=== PATIENT | female | born 1985 | race Caucasian/White ===

== ENCOUNTER → 2016-08-22 | Outpatient (CLI) | payer BC, OTHER ==
[2016-08-22 12:27] LABS: URINE APPEARANCE CLEAR (CLEAR); URINE BILIRUBIN NEG (NEG); URINE COLOR YELLOW; URINE EPITHELIAL CELL AUTO >30 /lpf (0-5); URINE NITRITE NEG (NEG); URINE SPECIFIC GRAVITY 1.014 (1.000-1.030); UROBILINOGEN NEG (NEG)
[2016-08-22 12:36] LABS: MANUAL MICROSCOPIC REQUIRED? NO; REVIEW REQ? NO
== END | disposition home or self-care (01) ==
LOC: C.LABSPEC 11:32 → MERGE 11:32
PROVIDERS: ATTEND Obstetrics & Gynecology
DX: Z34.90 Encounter for supervision of normal pregnancy, unspecified, unspecified trimester (principal)

== ENCOUNTER → 2016-08-29 | Outpatient (CLI) | payer OTHER ==
[2016-08-29 09:59] LABS: BASO % 0.5 %; BASO ABS # 0.03 K/uL (0-0.2); COMPLETE YES; EOS % 0.7 %; HEMATOCRIT 37.2 % (37-47); IG% 0.2 %; LYMPH % 26.1 %; LYMPH ABS # 1.47 K/uL (1.2-3.4); MEAN CELL VOLUME 88.6 fL (80-100); MEAN CORPUSCULAR HEMOGLOBIN 30.7 pg (25-34); MEAN CORPUSCULAR HGB CONC 34.7 g/dl (32-36); MONO % 4.8 %; NEUT % 67.7 %; PLATELET COUNT 267 K/uL (130-400); WHITE BLOOD COUNT 5.63 K/uL (4.8-10.8)
[2016-08-31 08:00] LABS: CHLAMYDIA TRACH RNA*** NOT DETECTED (NOT DETECTED); GC (NEIS GONORRHOEAE)RNA** NOT DETECTED (NOT DETECTED)
== END | disposition home or self-care (01) ==
LOC: MERGE 09:04 → C.LAB1850 09:04
PROVIDERS: ATTEND Obstetrics & Gynecology
DX: Z34.90 Encounter for supervision of normal pregnancy, unspecified, unspecified trimester (principal)

== ENCOUNTER 2017-03-08 15:47 | Outpatient (CLI) | payer OTHER ==
[2017-04-03] MEDS ORDERED: PRENTAB26 PO (19:54)
== END 2017-04-03 20:47 | disposition home or self-care (01) ==
LOC: C.LABSPEC 15:47
PROVIDERS: ATTEND Obstetrics & Gynecology
DX: Z34.83 Encounter for supervision of other normal pregnancy, third trimester (principal)

== ENCOUNTER 2017-04-01 03:29 | Inpatient (IN) | payer OTHER ==
[~2017-04-01] VITALS: Ht 170.2 cm; Wt 86.9 kg
[2017-04-03] MEDS ORDERED: PRENTAB26 PO (19:54)
[2017-04-04 08:23] VITALS: Ht 170.2 cm; Wt 86.9 kg
[2017-04-04] MEDS ORDERED: LACTATED RINGER'S 1000ML 500 ML IV PRN ×3 (09:12→14:03)
[2017-04-04] MEDS ORDERED: LACTATED RINGER'S 1000ML 1,000 ML IV SCH ×2 (09:12→14:57)
[2017-04-04] MEDS ORDERED: LACTATED RINGER'S 1000ML 1,000 ML IV PRN (09:12)
[2017-04-04] MEDS ORDERED: OXYTOCIN 30 UNITS/500ML NSS IV PRN ×2 (09:30→15:00)
[2017-04-04 09:38] LABS: HEMATOCRIT 37.7 % (37-47); HEMOGLOBIN 13.1 g/dL (12.0-16.0); MEAN CORPUSCULAR HGB CONC 34.7 g/dl (32-36); MEAN PLATELET VOLUME 10.1 fL (7.4-10.4); PLATELET COUNT 257 K/uL (130-400); RED CELL DISTRIBUTION WIDTH SD 43.2 fL (36.4-46.3); WHITE BLOOD COUNT 8.98 K/uL (4.8-10.8)
[2017-04-04] MEDS ORDERED: BUPIVACAINE 0.25% 30 ML VIAL ONE (13:03)
[2017-04-04] MEDS ORDERED: FENTANYL CITRATE INJ 50 MCG/1 ML 2 ML VIAL ONE (13:04)
[2017-04-04] MEDS ORDERED: EpHEDrine SULFATE INJ 50 MG/ML AMP ONE (13:04)
[2017-04-04] MEDS ORDERED: FENTANYL 2MCG/ML ROPIV 1.25MG/ML 100ML BAG EPI ONE (13:04)
[2017-04-04] MEDS ORDERED: NALOXONE HCL INJ 1 MG in SODIUM CHLORIDE 0.9% 1000ML 1,000 ML IV PRN (14:03)
[2017-04-04] MEDS ORDERED: FENTANYL 2MCG/ML ROPIV 1.25MG/ML 100ML BAG EPI PRN (14:15)
[2017-04-04] MEDS ORDERED: NALOXONE HCL INJ 0.4 MG/1 ML VIAL/CARP IV PRN (14:15)
[2017-04-04] MEDS ORDERED: EpHEDrine SULFATE INJ 50 MG/ML AMP IV PRN (14:15)
[2017-04-04] MEDS ORDERED: DiphenhydrAMINE HCL 50 MG/ML VIAL IV PRN (14:15)
[2017-04-04] MEDS ORDERED: NALBUPHINE HCL INJ 10 MG/ML AMP IV PRN (14:15)
[2017-04-04] MEDS ORDERED: SUPERCREAM 0.870 % 15GM JAR EXT PRN (15:00)
[2017-04-04] MEDS ORDERED: LANOLIN OINT EXT PRN (15:00)
[2017-04-04] MEDS ORDERED: BENZOCAINE 20% AER SPR 82.5 GM CAN EXT PRN (15:00)
[2017-04-04] MEDS ORDERED: OXYCODONE/ACETAMINOPHEN 5-325 TAB PO PRN (15:00)
[2017-04-04] MEDS ORDERED: ACETAMINOPHEN 325 MG TAB PO PRN (15:00)
[2017-04-04] MEDS ORDERED: HYDROCORTISONE ACETATE 25 MG SUPP PR PRN (15:00)
--- NOTE | 2017-04-04 15:17 | Medical Student: [facility] ---
Medical Student Delivery Note Patient is a 31 YOF now P3013, RADHA of 04/01/2017, who presented to L&D this morning after having a pichardo bulb placed last night for planned induction this morning for 2 prior 40 week of GA macrosomic babies. Patient presented to L &D this morning, pichardo bulb was removed, and cervix was noted to be 3cm dilated. No regular contractions were present and amniocentesis was performed. After several hours without progression of labor, Pitocin was started to get the patient in a regular contraction pattern. At this time, an epidural was placed for pain control. The did develop some late decels after epidural placement. Pitocin was stopped at this time and 5mg of ephedrine was administered to augment placental perfusion and no more decels were seen. The patient was then fully dilated and proceeded to push over one contraction to deliver a viable, vigorously crying male with apgars of 8/9. No nuchal cord was noted. The infant was then placed on the mother's belly. Umbilical cord was doubly clamped and then cut by the infant's father. The placenta then spontaneously delivered with gentle cord traction. A 3 vessel cord and intact placenta was examined with no abnormalities noted. Hemostasis was spontaneously achieved with no intervention necessary. No vaginal/perineal lacerations occurred during delivery of the . EBL for delivery was 200mL. Sponge and needle count were correct after delivery. Mother and baby are resting comfortably in L&D at this time.
--- NOTE | 2017-04-04 15:40 | DELIVERY SUMMARY ---
DATE OF OPERATION: 04/04/2017 DELIVERY NOTE PREOPERATIVE DIAGNOSES: 1. Elizabeth intrauterine at 40 and 3. 2. Prior history of macrosomic . 3. Induction of labor. 4. Group B strep negative. POSTOPERATIVE DIAGNOSES: Same. PROCEDURE: Spontaneous vaginal delivery. SURGEON: Dr. Jennifer López. [employer]: Medical student. EBL: 200. COMPLICATIONS: None. DISPOSITION: Stable to labor and delivery. DESCRIPTION: Angela is a 4 para 2 admitted at 40 and 2 for a Abraham bulb ripening and 40 and 3 for induction of labor due to a history of macrosomia as well as being close to her EDC. Abraham bulb was removed on the morning of the . Artificial rupture of membranes and Pitocin were utilized to continue her labor. She was additionally provided an epidural for pain management. The patient reached complete dilation, pushed very wall during a test push and I was therefore called into the room for delivery. Through the next several pushes, the infant's head delivered in an occiput anterior position. With gentle guidance the anterior and then posterior shoulders delivered easily and the remainder of the body followed with no difficulty whatsoever. The was placed on the maternal abdomen where the cord was doubly clamped and cut by the father of the baby. The placenta then delivered spontaneously and was intact with a three-vessel cord. There were no lacerations requiring repair and at present time the mother and are both in the delivery room having tolerated the delivery well. I attest to the content of the Intraoperative Record and any orders documented therein. Any exception s are noted below.
[2017-04-04 19:30] VITALS: BP 126/84; PULSE 75; TEMP 36.4
[2017-04-04] MEDS: DOCUSATE SODIUM 100 MG CAP PO SCH (20:17)
[2017-04-04] MEDS: IBUPROFEN 600 MG TAB PO PRN (20:20)
[2017-04-04 23:45] VITALS: BP 121/78; PULSE 76; TEMP 36.5
[2017-04-05] MEDS: IBUPROFEN 600 MG TAB PO PRN ×2 (03:13→08:44)
[2017-04-05 03:30] VITALS: BP 137/86; PULSE 87
--- NOTE | 2017-04-05 06:12 | Progress Note ---
Subjective Apr 05, 2017. Subjective conversation w/ patient (Pt was seen and examined at bedside. No concerns reported.) Ambulation: ambulating normally Voiding: no voiding problems Passing Gas: Yes Diet Tolerance: Regular Diet Lochia: Moderate Feeding Type: Breast Feeding Pain: Mild abdominal cramping with Review of Systems Constitutional: No fever, No chills, No sweats Respiratory: No cough, No shortness of breath Cardiac: No chest pain, No edema Breast: No breast pain Abdomen: No nausea, No vomiting Female : No dysuria, No urinary frequency Objective Vital Signs Date Time Temp Pulse Resp B/P (MAP) Pulse Ox O2 Delivery O2 Flow Rate FiO2 04/05/17 03:30 87 18 137/86 (103) 04/04/17 23:45 36.5 76 18 121/78 (92) 04/04/17 23:45 Room Air 04/04/17 19:30 Room Air 04/04/17 19:30 36.4 75 18 126/84 (98) Room Air Physical Exam General Appearance: WELL-APPEARING, WD/WN, NO APPARENT DISTRESS Respiratory/Chest: chest non-tender, lungs clear, normal breath sounds, no respiratory distress, no accessory muscle use Cardiovascular: regular rate, rhythm, no edema, no gallop, no murmur Abdomen: normal bowel sounds, non tender, soft, no organomegaly, no pulsatile mass Fundus: Firm, Non-Tender, Relation to Umbilicus (at the umbilicus) Extremities: normal range of motion, non-tender, normal inspection, no pedal edema, no calf tenderness Laboratory Results Last 24 Hours Test 04/04/17 09:22 04/05/17 04:44 White Blood Count 8.98 K/uL Red Blood Count 4.10 M/uL Hemoglobin 13.1 g/dL Hematocrit 37.7 % Mean Corpuscular Volume 92.0 fL Mean Corpuscular Hemoglobin 32.0 pg Mean Corpuscular Hemoglobin Concent 34.7 g/dl RDW Standard Deviation 43.2 fL RDW Coefficient of Variation 13.0 % Platelet Count 257 K/uL Mean Platelet Volume 10.1 fL Medications Current Inpatient Medications Medications (Trade) Dose Ordered Sig/Kyler Route Start Time Stop Time Status Last Admin Dose Admin Lactated Ringer's 1,000 ml @ 999 mls/hr Q1H1M PRN IV 04/04/17 09:12 05/04/17 09:11 04/04/17 13:43 999 MLS/HR Lactated Ringer's 500 ml @ 999 mls/hr Q31M PRN IV 04/04/17 09:12 05/04/17 09:11 Lactated Ringer's 500 ml @ 999 mls/hr Q31M PRN IV 04/04/17 09:29 05/04/17 09:28 Lactated Ringer's 1,000 ml @ 125 mls/hr Q8H IV 04/04/17 14:57 05/04/17 14:56 Oxytocin (Pitocin IV) 30 units UD PRN IV 04/04/17 15:00 05/04/17 14:59 Benzocaine (Dermoplast Aero Spr) 1 appln PRN PRN EXT 04/04/17 15:00 05/04/17 14:59 04/04/17 20:17 82.5 APPLN Cocaine HCl (Supercream 0.870% Cr) BID PRN EXT 04/04/17 15:00 04/18/17 14:59 Hydrocortisone Acetate (Anusol Hc Supp) 25 mg BID PRN OH 04/04/17 15:00 05/04/17 14:59 Lanolin (Lanolin Oint) PRN PRN EXT 04/04/17 15:00 05/04/17 14:59 Prenat Multivit/ Mathematician/Iron/Folic Ac ( Vitamin Tab) 1 tab DAILY PO 04/05/17 08:00 05/05/17 07:59 Ibuprofen (Motrin Tab) 600 mg Q4H PRN PO 04/04/17 15:00 05/04/17 14:59 04/05/17 03:13 600 MG Acetaminophen (Tylenol Tab) 650 mg Q6H PRN PO 04/04/17 15:00 05/04/17 14:59 Oxycodone/ Acetaminophen (Percocet 5-325mg Tab) 1 tab Q4H PRN PO 04/04/17 15:00 04/18/17 14:59 Docusate Sodium (coLACE CAP) 100 mg BID PO 04/04/17 20:00 05/04/17 19:59 04/04/17 20:17 100 MG Assessment and Plan Post- Day#: 1 Continue Routine Care: A&P: s/p day 1 - encourage ambulation & - analgesia prn - monitor lochia - vitals reviewed and wnl - hemoglobin yesterday 13.1, will review today's results when available - will review discharge instructions as she is ready for d/c later today Amy Ward, PGY1 Resident Physician Supervision Note: I was present with Dr. Ward during the history and exam. I discussed the case with the resident and agree with the findings and plan as documented in the note. Any exceptions or clarifications are listed here: [None] Documented By: Jennifer López Resident Tracking Resident Involvement: Resident Care Provided Care Provided: OB Delivery
--- NOTE | 2017-04-05 06:15 | Anesthesia Procedure Note ---
Anesthesia Epidural Removal Nt Date & Time Apr 05, 2017 at 06:15 Vital Signs Pain Intensity: 6.0 Vital Signs Past 12 Hours Date Time Temp Pulse Resp B/P (MAP) Pulse Ox O2 Delivery O2 Flow Rate FiO2 04/05/17 03:30 87 18 137/86 (103) 04/04/17 23:45 36.5 76 18 121/78 (92) 04/04/17 23:45 Room Air 04/04/17 19:30 Room Air 04/04/17 19:30 36.4 75 18 126/84 (98) Room Air Notes Mental Status: alert / awake / arousable, participated in evaluation Nausea / Vomiting: adequately controlled Pain: adequately controlled Airway Patency, RR, SpO2: stable & adequate BP & HR: stable & adequate Hydration State: stable & adequate Neuraxial Anesthesia: was administered, sensory block is resolved Anesthetic Complications: no major complications apparent, pt satisfied with anesthetic care Epidural: removed without complications, with tip intact
--- NOTE | 2017-04-05 06:19 | Medical Student: [facility] ---
Med Student TEST CONSULTANT Progress Nt Date of Service Apr 05, 2017. Subjective conversation w/ patient, conversation w/ family, physical exam, chart review, lab review Ambulation: ambulating normally Voiding: no voiding problems, no incontinence Passing Gas: Yes Diet Tolerance: Regular Diet Lochia: Small Feeding Type: Breast Feeding Pain: Controlled with ibuprofen Notes: Patient is doing well overnight. Has no concerns for us this morning. Is and baby latches well. Has been up and walking around the unit. O neg, RI, GBS neg Review of Systems Constitutional: No fever, No chills Respiratory: No wheezing, No shortness of breath Cardiac: No chest pain Breast: No breast pain Abdomen: No pain, No nausea, No vomiting Female : No incontinence Objective Vital Signs Date Time Temp Pulse Resp B/P (MAP) Pulse Ox O2 Delivery O2 Flow Rate FiO2 04/05/17 03:30 87 18 137/86 (103) 04/04/17 23:45 36.5 76 18 121/78 (92) 04/04/17 23:45 Room Air 04/04/17 19:30 Room Air 04/04/17 19:30 36.4 75 18 126/84 (98) Room Air Physical Exam General Appearance: WELL-APPEARING, WD/WN, NO APPARENT DISTRESS Respiratory/Chest: chest non-tender, lungs clear, normal breath sounds, no respiratory distress, no accessory muscle use Cardiovascular: regular rate, rhythm, no gallop, no murmur Abdomen: normal bowel sounds, non tender, soft Fundus: Firm, Relation to Umbilicus (at the umbilicus ) Extremities: normal range of motion, no calf tenderness, + pedal edema (trace edema) Laboratory Results Last 24 Hours Test 04/04/17 09:22 04/05/17 04:44 White Blood Count 8.98 K/uL Red Blood Count 4.10 M/uL Hemoglobin 13.1 g/dL Hematocrit 37.7 % Mean Corpuscular Volume 92.0 fL Mean Corpuscular Hemoglobin 32.0 pg Mean Corpuscular Hemoglobin Concent 34.7 g/dl RDW Standard Deviation 43.2 fL RDW Coefficient of Variation 13.0 % Platelet Count 257 K/uL Mean Platelet Volume 10.1 fL Assessment and Plan Day Number: 1 Continue Routine Care: Assessment: Patient is a 32 YOF now P3, PPD#1 s/p NVD with pichardo induction. Patient delivered without any complications. Plan:Will continue routine care by encouraging patient to be up out of bed and walking around the unit. Control pain prn with ibuprofen. Congratulated patient on successfully and encouraged her to continue brining the baby to breast. Initial labs looked good. Will recheck today's H&H later today once available. No concerns at this time.
[2017-04-05 06:36] LABS: HEMATOCRIT 36.5 % (37-47); HEMOGLOBIN 12.1 g/dL (12.0-16.0)
[2017-04-05 07:20] VITALS: BP 113/75; PULSE 78; TEMP 36.6; O2SAT 97
--- NOTE | 2017-04-05 07:35 | Discharge Instructions ---
Discharge Instructions Date of Service Apr 05, 2017. Admission Reason for Admission: Induction Discharge Discharge Diagnosis / Problem: Vaginal Delivery Discharge Goals Goal(s): Routine recovery after delivery Medications Continue Dispensed Medications: supercream, dermaplast, tucks, lansinoh Activity Recommendations Activity Limitations: per Instructions/Follow-up section . Instructions / Follow-Up Instructions / Follow-Up ACTIVITY RECOMMENDATIONS: * Gradual return to full activity over the next 2-3 weeks. * No lifting - nothing heavier than baby over the next 2-3 weeks. * Do not engage in vigorous exercise, sexual activity or sports until cleared by your physician. * Do not drive or operate any motorized equipment until cleared by your physician. * You may shower/bathe daily. MEDICATIONS: For discomfort or pain, you may use Acetaminophen (Tylenol), Ibuprofen (Advil), or Naproxen (Aleve) following the package directions. For constipation you may use Colace following the package directions. BREAST CARE: If you are not breast feeding: * Wear a supportive bra 24 hours a day for one to two weeks. * Avoid stimulating your breasts and nipples as much as possible during the first few weeks after delivery. * When taking a shower, have the warm water hit your back, not breasts. * When your breasts feel full, apply ice packs. Usually three to four times a day helps ease the discomfort. * Take a mild pain medication (Tylenol / Motrin) when you are uncomfortable. If breast feeding: * Use breast milk to lubricate nipples. Lansinoh cream may be used for sore nipples. You do not need to remove cream prior to breast feeding. If using a different brand of cream, check the label for directions regarding removal of cream prior to nursing. * Wear a supportive bra. * If having problems with breasts or breast feeding, call a marketing sales consultant or your health care provider. EPISIOTOMY CARE: After delivery, if you have an episiotomy (stitches), the following steps will ease discomfort and aid healing. * For the first 24 hours after delivery, place ice packs next to your episiotomy to help reduce swelling. * After the first 24 hour-period, sitz baths, either portable or in the tub, are suggested. A shower with a shower arm sprayed over the episiotomy may be comforting. * Michelle care should be done after each voiding and bowel movement. Squirt warm water from a plastic bottle over the perineum (region of the body between the anus and urinary opening) and pat dry. * Use Dermoplast to ease discomfort. Shake container. [place] directly over the episiotomy. Place a Tucks on a clean sanitary pad next to your episiotomy. SPECIAL CARE INSTRUCTIONS: When you are discharged from the hospital, it is important for you to follow the instructions listed below: * During the first week at home, you should be able to care for yourself and your baby. In addition, the usual light household activities are encouraged. * Limit your activities to the way you feel. Do not try to clean the house or move furniture. Be sensible. * If you actively engage in sports and have done so up until the time of your delivery, you may resume these activities as soon as you feel able. This may take up to one month or even longer. Use good judgment. * Continue to take your vitamins for at least six weeks after the of your baby. * Your diet need not be limited unless you were on a special diet before your delivery. Breast-feeding mothers need around 2500 calories per day and at least 64-80 ounces of fluid per day (8 to 10 glasses). * You should eat foods from the four major food groups. Crash diets or fad diets are to be avoided. Eating lean meats, fresh fruits and vegetables, low-fat dairy products, high fiber foods and a regular exercise program, will help you get back to your pre- weight without putting your health at risk. * Constipation is sometimes a problem after delivery. Take a mild laxative as needed. If breast feeding, Milk of Magnesia is acceptable to use. You may use a suppository or Fleets enema if no episiotomy. * A daily shower or tub bath is suggested. Be sure to thoroughly and gently dry the perineum. * A bloody vaginal discharge will usually continue until around four weeks post . A small amount of bleeding may continue for as long as six weeks. Vaginal discharge changes from the bright red bleeding after delivery to pink then brownish and finally yellowish-pink before becoming white and disappearing. * Bleeding may increase with activity. Your first period may come in 4-8 weeks. If you are breast feeding, your period may be delayed even longer. * [place] (sex) can begin whenever both you and your partner feel comfortable and do not have any form of genital infection. It is recommended that you wait at least six weeks for internal and external healing to occur. If you have questions, please talk to your health care practitioner. A condom should be used to prevent infection and . * Foreplay, gentle intercourse and lubrication is very important the first several times to prevent pain. A water-based lubricant such as K-Y jelly or Astroglide may be used. * If you have RH negative blood and your baby is RH positive, you will receive RHOGAM by injection prior to discharge. The nurse will give you a card to keep with you that has the date and place that you received RHOGAM after delivery. * During your care, you had a Rubella screen done to check for the presence of rubella antibodies in your blood. If your test was negative, you will receive a Rubella vaccine prior to discharge. This vaccine may cause a fever, soreness at the injection site and flu-like symptoms. If these symptoms persist, notify your health care practitioner. is not advised for one month after a Rubella vaccine. * Verbalizes understanding of car seat law as reviewed with patient nursing. * Car Seat hand-out given and reviewed with patient by nursing. * Shaken baby information reviewed with patient by nursing. Call you doctor if: * Heavy bleeding (saturating several pads an hour) or passing clots the size of your fist. * A fever >101 degrees F (38.3 degrees C) on two occasions four hours apart and /or chills. * Unusual pain in the pelvic or vaginal areas. * "Baby Blues" lasting longer than two weeks. If you have any questions or concerns, call your health care practitioner at . FOLLOW UP VISIT: * Please call the office at to schedule a 6 week examination. It is important you keep this appointment. It is important for you to make arrangements for either yearly or twice yearly check-ups thereafter. Current Hospital Diet Patient's current hospital diet: Regular OB Diet Discharge Diet Recommended Diet: Regular Diet Pending Studies Studies pending at discharge: no Medical Emergencies . Who to Call and When: Medical Emergencies: If at any time you feel your situation is an emergency, please call [phone] immediately. . Non-Emergent Contact Non-Emergency issues call your: Primary Care Provider . . "Provider Documentation" section prepared by Amy Ward. . VTE Core Measure Inpt VTE Proph given/why not?: Treatment not indicated
[2017-04-05] MEDS ORDERED: PRENATAL VITAMIN TAB PO SCH (08:00)
[2017-04-05] MEDS: DOCUSATE SODIUM 100 MG CAP PO SCH (08:43)
[2017-04-05 11:05] VITALS: BP 129/87; PULSE 74; TEMP 36.7; O2SAT 97
[2017-04-05 15:35] VITALS: BP_DIAS 87; PULSE 74; TEMP 36.7
== END 2017-04-05 16:35 | disposition home or self-care (01) | DRG 775 ==
LOC: C.LD 04-04 07:46 → C.OBG 04-04 18:44
PROVIDERS: ADMIT Obstetrics & Gynecology; ATTEND Obstetrics & Gynecology
PROC: 10E0XZZ Delivery of Products of Conception, External Approach (ICD-10-PCS; principal; 2017-04-04)
PROC: 3E0P7GC Introduction of Other Therapeutic Substance into Female Reproductive, Via Natural or Artificial Opening (ICD-10-PCS; 2017-04-04)
DX: O48.0 Post-term pregnancy (principal); Z3A.40 40 weeks gestation of pregnancy; Z37.0 Single live birth

== ENCOUNTER 2017-04-03 19:14 | Outpatient (CLI) | payer OTHER ==
[~2017-04-03] VITALS: Ht 170.2 cm; Wt 86.8 kg
[2017-04-03 19:54] VITALS: Ht 170.2 cm; Wt 86.8 kg
[2017-04-03] MEDS ORDERED: PRENTAB26 PO (19:54)
== END 2017-04-03 20:47 | disposition home or self-care (01) ==
LOC: C.LD 19:14 → C.OPB 19:14
PROVIDERS: ATTEND Obstetrics & Gynecology
DX: O34.43 Maternal care for other abnormalities of cervix, third trimester (principal); Z3A.40 40 weeks gestation of pregnancy

== ENCOUNTER → 2017-09-26 | Outpatient (CLI) | payer OTHER ==
[~2017-09-26] MED LIST: PRENTAB26 PO
== END | disposition home or self-care (01) ==
LOC: C.PATHSPEC 17:51
PROVIDERS: ATTEND Plastic Surgery
DX: L98.9 Disorder of the skin and subcutaneous tissue, unspecified (principal); D22.5 Melanocytic nevi of trunk